=== PATIENT | female | born 1955 | race Caucasian/White ===

== ENCOUNTER 2018-08-20 15:19 | Emergency (ER) | payer OTHER ==
[~2018-08-20] VITALS: Ht 154.9 cm; Wt 67.8 kg
[~2018-08-20 15:19] MED LIST: AMLO-150 PO; ANAS1TAB49 PO; CALC500T93 PO; CEPH-368 PO; CHOL200052 PO; CYAN50TA PO; ESTR1TAB15 PO; LEVO88TA4 PO; LIOT5TAB3 PO; LORA1TAB PO; OXYC5TAB2 PO; VALS320T2 PO
[2018-08-20 15:56] LABS: BASOPHILS # (AUTO) 0.03 x10^3/uL (0-0.1); BASOPHILS % (AUTO) 1 % (0-1); EOSINOPHILS # (AUTO) 0.14 x10^3/uL (0-0.4); EOSINOPHILS % (AUTO) 2 % (1-7); LYMPHOCYTES # (AUTO) 1.55 x10^3/uL (1-3.4); LYMPHOCYTES % (AUTO) 24 % (22-44); MD NO; MEAN CORPUSCULAR HEMOGLOBIN 31.6 pg (27.0-34.8); MEAN CORPUSCULAR HGB CONC 34.2 g/dL (32.4-35.8); MEAN CORPUSCULAR VOLUME 92.3 fL (80-100); MEAN PLATELET VOLUME 10.4 fL (7.4-10.4); MONOCYTES # (AUTO) 0.32 x10^3/uL (0.2-0.8); MONOCYTES % (AUTO) 5 % (2-9); NEUTROPHILS # (AUTO) 4.55 x10^3/uL (1.8-6.8); NEUTROPHILS % (AUTO) 69 % (42-75); PLATELET COUNT 169 x10^3/uL (130-400); RED BLOOD COUNT 4.84 x10^6/uL (3.82-5.3); RED CELL DISTRIBUTION WIDTH 13.8 % (9.6-15.2)
[2018-08-20 16:06] LABS: ALANINE AMINOTRANSFERASE 27 U/L (12-78); ALBUMIN 3.9 g/dL (3.4-5.0); ANION GAP 4 mmol/L (5-15); CALCIUM 9.8 mg/dL (8.5-10.1); CHLORIDE 104 mmol/L (98-107)
[2018-08-20] MEDS ORDERED: KETOROLAC 30 MG/1 ML ONE (16:07)
[2018-08-20 16:09] LABS: ALKALINE PHOSPHATASE 90 U/L (45-117); BILIRUBIN,TOTAL 0.7 mg/dL (0.2-1.0); CREATININE 0.89 mg/dL (0.55-1.02); TOTAL PROTEIN 6.9 g/dL (6.4-8.2)
--- NOTE | 2018-08-20 16:09 | NUR ---
Per pt request, 30 mg IM ketorolac given instead of ordered dose of 60 mg.
[2018-08-20] MEDS ORDERED: KETOROLAC 30 MG/1 ML IM ONE (16:30)
[2018-08-20 16:43] LABS: MICROSCOPIC INDICATED
[2018-08-20 16:50] LABS: CULTURE INDICATED? NO
[2018-08-20 16:55] VITALS: BP 172/86
--- NOTE | 2018-08-20 17:36 | NUR ---
Patient/Caregiver given discharge instructions and they have confirmed that they understand the instructions. Patient ambulatory with steady gait. Pt left with all personal belongings.
== END 2018-08-20 17:39 | disposition home or self-care (01) ==
LOC: ED 17:19
DX: N13.2 Hydronephrosis with renal and ureteral calculous obstruction (principal); E03.9 Hypothyroidism, unspecified; I10 Essential (primary) hypertension; Z90.710 Acquired absence of both cervix and uterus; Z85.9 Personal history of malignant neoplasm, unspecified
CPT/HCPCS: 36415; 74176; 80053; 81001; 85025; 96372; 99284; J1885